=== PATIENT | male | born 1945 | race Caucasian/White ===

== ENCOUNTER 2016-10-31 07:18 | Inpatient (IN) | payer OTHER ==
[2016-10-25 18:25] LABS: BASOPHILS 0.2 %; BASOPHILS ABSOLUTE 0.02 10/3/uL (0.0-0.16); EOSINOPHILS 2.3 %; EOSINOPHILS ABSOLUTE 0.19 10/3/uL (0.0-0.53); HEMATOCRIT 38.2 % (40.0-51.0); HEMOGLOBIN 12.4 g/dL (13.6-17.8); IMMATURE GRANULOCYTES 0.2 %; IMMATURE GRANULOCYTES ABSOLUTE 0.02 10/3/uL (0.0-0.11); LYMPHOCYTES 15.2 %; LYMPHOCYTES ABSOLUTE 1.27 10/3/uL (0.67-4.30); MEAN CORPUS HGB CONC 32.5 g/dL (32.0-36.0); MEAN CORPUSCULAR HEMOGLOB 28.6 pg (26.0-34.0); MEAN PLATELET VOLUME 11.4 fL (9.2-13.0); MONOCYTES 9.5 %; MONOCYTES ABSOLUTE 0.79 10/3/uL (0.21-1.20); NEUTROPHILS 72.6 %; NEUTROPHILS ABSOLUTE 6.04 10/3/uL (2.02-8.40); PLATELET COUNT 214 10/3/uL (150-400); RED CELL COUNT 4.33 10/6/uL (4.7-6.1); WHITE BLOOD CELLS 8.3 10/3/uL (4.5-10.5)
[2016-10-25 18:28] LABS: MANUAL DIFF NO %; MEAN CORPUSCULAR VOLUME 88.2 fL (80-100)
[2016-10-25 18:51] LABS: A/G RATIO 0.7 (0.7-1.9); ALBUMIN 3.3 G/DL (3.5-5.0); ALKALINE PHOSPHATASE 80 U/L (45-117); BUN (BLOOD UREA NITROGEN) 17 MG/DL (6-23); CALCIUM, SERUM 9.1 MG/DL (8.5-10.4); CHLORIDE, SERUM 103 MMOL/L (96-112); CO2 (CARBON DIOXIDE) 29 MMOL/L (24-34); CREATININE 1.07 MG/DL (0.70-1.30); GFR AFRICAN AMERICAN 82 ML/MIN (>=60); GFR NON AFRICAN AMERICAN 70 ML/MIN (>=60); GLOBULIN 4.6 G/DL (2.5-4.1); GLUCOSE, SERUM 177 MG/DL (60-99); POTASSIUM, SERUM 3.7 MMOL/L (3.5-5.3); PREALBUMIN 16.5 MG/DL (17.0-43.0); SGOT(AST) 10 U/L (5-40); SGPT(ALT) 16 U/L (5-65); SODIUM, SERUM 140 MMOL/L (135-148); TOTAL BILIRUBIN 0.7 MG/DL (0-1.2); TOTAL PROTEIN 7.9 G/DL (6.0-8.5)
--- NOTE | ~2016-10-31 | OP ---
Record Of Operation [facility] [address] [place]. [address] NAME: CANDY MORRISON : 47 STATUS : ADM IN PAT#: [id number] AGE: 70 ADM/REG DATE : 10/31/16 MR#: [id number] REPORT SERV DATE: 11/01/16 DICTATED BY: SYLVIA WARD JR. DATE: 10/31/16 REPORT STATUS : Draft TRANSCRIBED BY: MODL DATE: 10/31/16 DATE OF PROCEDURE: 10/31/2016 SURGEON: Sylvia Ward MD ROLL UP HELPER: Eveline Howell. PROCEDURE: Repair of incarcerated umbilical/ventral hernia with mesh. PREOPERATIVE DIAGNOSIS: Umbilical hernia. POSTOPERATIVE DIAGNOSIS: Umbilical hernia. Ventral hernia with incarceration. ANESTHESIA: General. INDICATIONS: The patient has morbid obesity. Does have a massive hernia certainly in the umbilical region with associated skin excoriation and breakdown. Repair is indicated. FINDINGS: There was incarcerated hernia which emanated from the area of the umbilical region. This extended over approximately 10 cm with a hernia sac which measure approximately 20 to 25 cm. This was released and materials were reduced back into the peritoneal cavity. This was repaired with a lateral release repair with biologic mesh reinforcement. Overlying ulcerated skin was excised. DESCRIPTION OF PROCEDURE: With adequate general anesthesia, the patient was placed in supine position. The abdomen was prepped and draped sterilely. Local incision was outlined incorporating the ulcerated skin incision first on the left side, was deep into the dermis and a flap was raised out to encompass the extent of the hernia sac. Some of this was accomplished on the patient's right side and the hernia sac was dissected free of surrounding tissues. Then down to the fascial layer where the sac was opened, the fascia was opened, and hernia sac was dissected free and excised and submitted to Pathology with the opening of the fascial incision. The hernia contents were able to be reduced. This incorporated omentum and small bowel and colon. Then flaps were raised out to the lateral border of the latissimus to the rectus muscle. Anterior fascial incisions were made with allowed release of the fascia was able to be closed in midline with a running 0 Novafil. Redundant fat was excised. Then, a Biodesign graft was utilized to reinforce this securing it to the edges of the relaxed excision with interrupted mattress of 0 Novafil. A 13 x 22 cm graft was utilized and then two 19-Roni drains were left. The wound was closed in layers with 2-0 Vicryl, subcutaneous 2-0 Vicryl, and subcutaneous Monocryl. Negative pressure dressing was placed. The patient left the operating room in satisfactory condition. ESTIMATED BLOOD LOSS: 100 mL. Record Of Operation [facility] [address] [place]. [address] NAME: CANDY MORRISON : 47 STATUS : ADM IN [facility]#: [id number] AGE: 70 ADM/REG DATE : 10/31/16 MR#: [id number] REPORT SERV DATE: 11/01/16 DICTATED BY: SYLVIA WARD JR. DATE: 10/31/16 REPORT STATUS : Draft TRANSCRIBED BY: BASSAM DATE: 10/31/16 CORTES/BASSAM Sylvia Ward Jr., M.D. / [id number] CC: Jam Jackson Jr.
--- NOTE | ~2016-10-31 | DS ---
Discharge Summary [facility] [place] [address] [place]. [address] NAME: CANDY MORRISON : 47 STATUS : DIS IN PAT#: [id number] AGE: 71 ADM/REG DATE : 10/31/16 MR#: [id number] REPORT SERV DATE: 11/19/16 DICTATED BY: SYLVIA WARD JR. DATE: 11/18/16 REPORT STATUS : Draft TRANSCRIBED BY: BASSAM DATE: 11/18/16 Data Collection from hospitalization DISCHARGE DIAGNOSES: 1. Umbilical hernia. 2. Ventral hernia with incarceration. 3. Hypertension. 4. Type 2 diabetes. 5. Diabetic neuropathy. 6. Sleep apnea. 7. Morbid obesity. 8. Chronic obstructive pulmonary disease. 9. Congestive heart failure. 10.Arrhythmia. 11.Arthritis. 12.Rheumatoid arthritis. 13.Former smoker. CONSULTATIONS: Sylvia Pittman MD. PROCEDURES PERFORMED: Repair of incarcerated umbilical/ventral hernia with mesh on 10/31/2016. PATHOLOGY: Skin and soft tissues from umbilical hernia repair - hernia sac with prominent areas of fibrosis, ulcerated skin. MEDICATIONS: Aspirin 81 mg daily, Coreg 3.125 mg twice a day, vitamin B12 1000 mcg daily, Lasix 40 mg daily, hydrochlorothiazide 12.5 mg daily, Tresiba 38 units subcutaneously at noon as instructed, Synthroid 200 mcg daily, Mag-Ox 400 mg daily, Glucophage 1000 mg twice a day, Singulair 10 mg at bedtime, Percocet 5/325 one to two tablets every six hours as needed, Klor-Con 10 mEq daily, Altace 10 mg twice a day, and Coumadin 7 mg daily. CONDITION AT DISCHARGE: Stable. DISPOSITION: The patient was discharged home on an 1800-calorie diabetic diet with activities as instructed. He would follow up with me one week following discharge. HOSPITAL COURSE: This is a 70-year-old man who has morbid obesity. He has a massive hernia in the umbilical region with associated skin excoriation and breakdown. It was felt that repair was indicated. Treatment options were discussed and it was elected to proceed with surgical intervention. He was admitted to the hospital at this time for further evaluation and treatment. Upon admission, he was taken to the operating room where he underwent the above-mentioned procedure. He tolerated this well, and there were no complications. On postop day #1, his abdomen was soft. He was seen by Dr. Sylvia Pittman regarding medical management. The patient was resting in bed and hemodynamically stable. He did have some nausea postoperatively, but no vomiting at this time. He reported having some urinary retention, which he said was new Discharge Summary [facility] [id number] [place]. [address] NAME: CANDY MORRISON : 47 STATUS : DIS IN PAT#: [id number] AGE: 71 ADM/REG DATE : 10/31/16 MR#: [id number] REPORT SERV DATE: 11/19/16 DICTATED BY: SYLVIA WARD JR. DATE: 11/18/16 REPORT STATUS : Draft TRANSCRIBED BY: MODKayla DATE: 11/18/16 for him. All of his symptoms have started following surgery. White blood cell count was 11.1. Creatinine was 1.02. The patient was currently on sliding scale insulin. We would hold all oral anti-hyperglycemic medication. He was going to be started on Levemir and we would continue sliding scale insulin. Coreg and hydrochlorothiazide were continued. Lisinopril was going to be started. The patient was also started on atorvastatin for dyslipidemia. On 11/02/2016, he did complain of some pain and nausea. He was afebrile. An NG tube was placed. He was evaluated by Physical Therapy. He said he had a rough night. Flagyl and Levaquin were started for his leukocytosis. On 11/03/2016, he was feeling better. NG tube was removed. He had no nausea or vomiting. A trial of clear liquids was started. On 11/04/2016, he did complain of gas. He was not passing flatus. We encouraged him to increase his activity. Coreg was increased. Leukocytosis had resolved. He had good glycemic control over the next couple of days. The patient had a BMI of 58.3. He continued to have some gas pain. He began to pass flatus. His pain medications were decreased. IV fluids were continued. He had some increased O2 requirement. The NG tube was replaced with a large volume output. He continued to have good glycemic control. On the morning of 11/06/2016, he did have an episode of emesis. Hydralazine was being given every eight hours for systolic blood pressure greater than 170. NG tube was in place. He did have a bowel movement. On 11/08/2016, the NG tube was removed. His abdomen was soft. Going to restart his home diabetes medications soon. He continued to progress. He was eating well. Discharge planning was performed. On 11/10/2016, discharge instructions were given. Due to his improved and stable condition, he was discharged home with the above-stated instructions. Information collected by: Viola Mcfarlane I submit the above information as my discharge summary. JOSE/BASSAM Sylvia Ward Jr., M.D. / [id number] CC: Jam Jackson Jr., ARDYCE JANE
--- NOTE | ~2016-10-31 | CN ---
Consultation Report [facility] [address] [place]. [address] NAME: CANDY PALOMO : 47 STATUS : ADM IN [facility]#: [id number] AGE: 70 ADM/REG DATE : 10/31/16 MR#: [id number] REPORT SERV DATE: 11/01/16 DICTATED BY: SYLVIA OLVERA DATE: 11/01/16 REPORT STATUS : Draft TRANSCRIBED BY: MODKayla DATE: 11/01/16 CONSULTATION NOTE DATE OF CONSULTATION: REASON FOR CONSULT: Medical management, status post repair of incarcerated umbilical hernia. HISTORY OF PRESENTING ILLNESS: Mr. Palomo is a 70-year-old male with a history of hypertension, diabetes type 2, morbid obesity, chronic atrial fibrillation, obstructive sleep apnea, who presented to the hospital for repair of incarcerated umbilical hernia. The patient is status post procedure which he tolerated well. Hospitalist Service is being consulted to assist with medical management, status post surgery. At the time of my evaluation of the patient, the patient was resting in bed, hemodynamically stable. The patient was complaining that status post surgery that he has had nausea with no vomiting at this time. He also reports urinary retention which he says it is new for him, and all his symptoms started status post surgery. Otherwise, the patient states he is doing well and does not have any new complaints at this time. REVIEW OF SYSTEMS: 14-point review of system was performed. All systems were negative except as noted in the HPI. PAST MEDICAL HISTORY: Significant for: 1. Chronic atrial fibrillation. 2. Hypertension. 3. Hyperlipidemia. 4. Diabetes type 2. 5. Morbid obesity. PAST SURGICAL HISTORY: The patient has a recent history of umbilical hernia repair. FAMILY HISTORY: Significant for congestive heart failure in father, myocardial infarction in father, and cardiac arrhythmias in father. SOCIAL HISTORY: The patient is a former smoker and states that he quit a couple of years ago. Alcohol use, the patient denies any alcohol use or illicit drug use. ALLERGIES: THE PATIENT REPORTS NO KNOWN ALLERGIES. PHYSICAL EXAMINATION: GENERAL: The patient is lying in bed, appears stated age. Morbidly obese. Speaking in full sentences. HEENT: Normocephalic, atraumatic. Extraocular motors intact. Moist oral mucosa. NECK: Trachea midline and symmetric. No thyromegaly loaded. Neck full. Consultation Report [facility] [address] [place]. [address] NAME: CANDY PALOMO : 47 STATUS : ADM IN PAT#: [id number] AGE: 70 ADM/REG DATE : 10/31/16 MR#: [id number] REPORT SERV DATE: 11/01/16 DICTATED BY: SYLVIA OLVERA DATE: 11/01/16 REPORT STATUS : Draft TRANSCRIBED BY: BASSAM DATE: 11/01/16 CHEST: Nontender to palpation. CARDIOVASCULAR: Regular rate and rhythm. S1, S2. I did not appreciate any murmurs. LUNGS: Anterior lung caputo are clear bilaterally and unable to examine his posterior lung caputo secondary to difficulty of the patient sitting up secondary to body habitus. ABDOMEN: Protuberant without pathologic stride positive bowel sounds. Nontender. Nondistended. Insertion looks clean with clean dressing. Drains present and draining bloody fluid. EXTREMITIES: No cyanosis, no clubbing, no edema. NEUROLOGIC: Alert and oriented x3. LABORATORY DATA: WBC 11.1, hemoglobin 12.0, hematocrit 37.7, platelets 210. Sodium 139, potassium 3.9, chloride 104, bicarb 30, BUN 15, creatinine 1.02, and glucose 228. ASSESSMENT AND PLAN: 1. Diabetes type 2, uncontrolled, last A1c 9.6, blood glucose ranging from 187 to 248. The patient currently on sliding scale insulin. Plan, we will hold all oral anti hyperglycemic medications. I will start the patient on Levemir 10 units b.i.d., NovoLog 5 units premeal t.i.d., and continue sliding scale insulin . 2. Hypertension, uncontrolled. The patient currently on Coreg 6.25 and HCTZ 25 mg p.o. daily. Plan, we will start lisinopril 10 mg p.o. daily and escalated as needed. 3. Dyslipidemia. The patient has an ASCVD score of placing the patient at high risk for atherosclerotic cardiovascular disease. Plan, we will start the patient on atorvastatin 40 mg p.o. daily. 4. Morbid obesity. BMI 58.3. 5. Leukocytosis. White count elevated. No evidence of infection currently at this point, no indication for initiation of antibiotic therapy empirically. We will monitor for now. ROYA/BASSAM Sylvia Olvera MD / [id number] CC: Jam Jackson Jr., ARDYCE JANE
[~2016-10-31 07:18] MED LIST: ADVAIR250 INH; ALTACE10 MG PO; APRES10B PO; ASAB PO; BUM2 PO; C1 PO; COREG3 PO; COUMADIN4 MG PO; CYANO1000T PO; DIABETA5 PO; DUONEB INH; GLUCOPHAGE1000 MG PO; HYDROCHLOROT12.5 MG PO; KDUR20 PO; KLOR-CON 1010 MEQ PO; KLOR-CON M2020 MEQ PO; L40 PO; LEVAQUIN750 MG PO; LEVOTHYROXIN175 MCG PO; MAGOX4 PO; MEDROLPAK4 PO; MICRONASE5 MG PO; NORV5 PO; OCEAN NAS; PRAVACHOL40 MG PO; SINGULAIR1 PO; SYNTHROID175 MCG PO; SYNTHROID200 MCG PO; TRESIBA FL200 UNIT/1 SQ
[2016-10-31 07:50] LABS: INTERNATIONAL NORMAL RATI 1.3 UNITS (-); PROTIME (NOT ORD) 15.6 SEC (12.0-14.5)
[2016-10-31 14:44] LABS: BASOPHILS 0.2 %; BASOPHILS ABSOLUTE 0.03 10/3/uL (0.0-0.16); EOSINOPHILS 1.7 %; EOSINOPHILS ABSOLUTE 0.23 10/3/uL (0.0-0.53); HEMATOCRIT 37.5 % (40.0-51.0); HEMOGLOBIN 12.3 g/dL (13.6-17.8); IMMATURE GRANULOCYTES 0.4 %; IMMATURE GRANULOCYTES ABSOLUTE 0.05 10/3/uL (0.0-0.11); LYMPHOCYTES 8.6 %; MEAN CORPUS HGB CONC 32.8 g/dL (32.0-36.0); MEAN CORPUSCULAR HEMOGLOB 29.2 pg (26.0-34.0); MEAN CORPUSCULAR VOLUME 89.1 fL (80-100); MEAN PLATELET VOLUME 10.8 fL (9.2-13.0); MONOCYTES 7.8 %; MONOCYTES ABSOLUTE 1.08 10/3/uL (0.21-1.20); NEUTROPHILS 81.3 %; NEUTROPHILS ABSOLUTE 11.29 10/3/uL (2.02-8.40); PLATELET COUNT 216 10/3/uL (150-400); RBC DISTRIBUTION WIDTH 16.3 % (12.0-16.0); RED CELL COUNT 4.21 10/6/uL (4.7-6.1)
[2016-10-31 14:45] LABS: MANUAL DIFF NO %; WHITE BLOOD CELLS 13.9 10/3/uL (4.5-10.5)
[2016-10-31 14:54] LABS: BUN (BLOOD UREA NITROGEN) 17 MG/DL (6-23); CALCIUM, SERUM 8.7 MG/DL (8.5-10.4); CHLORIDE, SERUM 107 MMOL/L (96-112); CO2 (CARBON DIOXIDE) 25 MMOL/L (24-34); CREATININE 1.19 MG/DL (0.70-1.30); GFR AFRICAN AMERICAN 72 ML/MIN (>=60); GFR NON AFRICAN AMERICAN 62 ML/MIN (>=60); GLUCOSE, SERUM 200 MG/DL (60-99); SODIUM, SERUM 141 MMOL/L (135-148)
[2016-10-31 14:58] LABS: POTASSIUM, SERUM 4.3 MMOL/L (3.5-5.3)
[2016-11-01 06:30] LABS: BASOPHILS 0.2 %; BASOPHILS ABSOLUTE 0.02 10/3/uL (0.0-0.16); EOSINOPHILS ABSOLUTE 0.11 10/3/uL (0.0-0.53); HEMATOCRIT 37.7 % (40.0-51.0); IMMATURE GRANULOCYTES 0.4 %; IMMATURE GRANULOCYTES ABSOLUTE 0.04 10/3/uL (0.0-0.11); LYMPHOCYTES 7.1 %; LYMPHOCYTES ABSOLUTE 0.79 10/3/uL (0.67-4.30); MEAN CORPUS HGB CONC 31.8 g/dL (32.0-36.0); MEAN CORPUSCULAR HEMOGLOB 28.7 pg (26.0-34.0); MEAN CORPUSCULAR VOLUME 90.2 fL (80-100); MEAN PLATELET VOLUME 10.8 fL (9.2-13.0); MONOCYTES 11.2 %; MONOCYTES ABSOLUTE 1.25 10/3/uL (0.21-1.20); NEUTROPHILS 80.1 %; NEUTROPHILS ABSOLUTE 8.92 10/3/uL (2.02-8.40); PLATELET COUNT 210 10/3/uL (150-400); RBC DISTRIBUTION WIDTH 16.2 % (12.0-16.0); RED CELL COUNT 4.18 10/6/uL (4.7-6.1); WHITE BLOOD CELLS 11.1 10/3/uL (4.5-10.5)
[2016-11-01 06:35] LABS: INTERNATIONAL NORMAL RATI 1.3 UNITS (-); PROTIME (NOT ORD) 16.3 SEC (12.0-14.5)
[2016-11-01 06:39] LABS: MANUAL DIFF NO %
[2016-11-01 06:42] LABS: A/G RATIO 0.7 (0.7-1.9); ALBUMIN 2.9 G/DL (3.5-5.0); BUN (BLOOD UREA NITROGEN) 15 MG/DL (6-23); CALCIUM, SERUM 8.3 MG/DL (8.5-10.4); CHLORIDE, SERUM 104 MMOL/L (96-112); CREATININE 1.02 MG/DL (0.70-1.30); GFR AFRICAN AMERICAN 87 ML/MIN (>=60); GFR NON AFRICAN AMERICAN 75 ML/MIN (>=60); GLOBULIN 4.1 G/DL (2.5-4.1); GLUCOSE, SERUM 228 MG/DL (60-99); POTASSIUM, SERUM 3.9 MMOL/L (3.5-5.3); SGOT(AST) 10 U/L (5-40); SGPT(ALT) 15 U/L (5-65); SODIUM, SERUM 139 MMOL/L (135-148)
[2016-11-01 06:45] LABS: ALKALINE PHOSPHATASE 63 U/L (45-117); CO2 (CARBON DIOXIDE) 30 MMOL/L (24-34); TOTAL BILIRUBIN 2.2 MG/DL (0-1.2)
[2016-11-02 06:36] LABS: BASOPHILS 0.1 %; BASOPHILS ABSOLUTE 0.01 10/3/uL (0.0-0.16); EOSINOPHILS 0.1 %; EOSINOPHILS ABSOLUTE 0.02 10/3/uL (0.0-0.53); HEMATOCRIT 38.1 % (40.0-51.0); HEMOGLOBIN 12.3 g/dL (13.6-17.8); IMMATURE GRANULOCYTES 0.3 %; IMMATURE GRANULOCYTES ABSOLUTE 0.04 10/3/uL (0.0-0.11); LYMPHOCYTES 3.6 %; LYMPHOCYTES ABSOLUTE 0.53 10/3/uL (0.67-4.30); MEAN CORPUS HGB CONC 32.3 g/dL (32.0-36.0); MEAN CORPUSCULAR HEMOGLOB 29.1 pg (26.0-34.0); MEAN CORPUSCULAR VOLUME 90.1 fL (80-100); MEAN PLATELET VOLUME 10.7 fL (9.2-13.0); MONOCYTES 10.4 %; MONOCYTES ABSOLUTE 1.54 10/3/uL (0.21-1.20); NEUTROPHILS 85.5 %; NEUTROPHILS ABSOLUTE 12.67 10/3/uL (2.02-8.40); PLATELET COUNT 195 10/3/uL (150-400); RBC DISTRIBUTION WIDTH 16.4 % (12.0-16.0); RED CELL COUNT 4.23 10/6/uL (4.7-6.1); WHITE BLOOD CELLS 14.8 10/3/uL (4.5-10.5)
[2016-11-02 06:38] LABS: MANUAL DIFF NO %
[2016-11-02 06:43] LABS: BUN (BLOOD UREA NITROGEN) 13 MG/DL (6-23); CALCIUM, SERUM 8.5 MG/DL (8.5-10.4); CHLORIDE, SERUM 102 MMOL/L (96-112); CREATININE 0.99 MG/DL (0.70-1.30); GFR AFRICAN AMERICAN 90 ML/MIN (>=60); GFR NON AFRICAN AMERICAN 77 ML/MIN (>=60); GLUCOSE, SERUM 226 MG/DL (60-99); POTASSIUM, SERUM 4.2 MMOL/L (3.5-5.3); SODIUM, SERUM 136 MMOL/L (135-148)
[2016-11-02 06:45] LABS: INTERNATIONAL NORMAL RATI 1.3 UNITS (-); PROTIME (NOT ORD) 16.2 SEC (12.0-14.5)
[2016-11-02 06:46] LABS: CO2 (CARBON DIOXIDE) 25 MMOL/L (24-34)
[2016-11-03 05:57] LABS: INTERNATIONAL NORMAL RATI 1.3 UNITS (-); PROTIME (NOT ORD) 15.7 SEC (12.0-14.5)
[2016-11-03 06:03] LABS: A/G RATIO 0.5 (0.7-1.9); ALBUMIN 2.4 G/DL (3.5-5.0); ALKALINE PHOSPHATASE 62 U/L (45-117); BUN (BLOOD UREA NITROGEN) 13 MG/DL (6-23); CALCIUM, SERUM 8.3 MG/DL (8.5-10.4); CHLORIDE, SERUM 104 MMOL/L (96-112); CO2 (CARBON DIOXIDE) 27 MMOL/L (24-34); CREATININE 0.77 MG/DL (0.70-1.30); GFR AFRICAN AMERICAN 107 ML/MIN (>=60); GFR NON AFRICAN AMERICAN 93 ML/MIN (>=60); GLOBULIN 4.6 G/DL (2.5-4.1); GLUCOSE, SERUM 190 MG/DL (60-99); POTASSIUM, SERUM 4.1 MMOL/L (3.5-5.3); SGOT(AST) 7 U/L (5-40); SGPT(ALT) 9 U/L (5-65); SODIUM, SERUM 138 MMOL/L (135-148)
[2016-11-03 06:08] LABS: BASOPHILS 0.1 %; BASOPHILS ABSOLUTE 0.01 10/3/uL (0.0-0.16); EOSINOPHILS 1.8 %; EOSINOPHILS ABSOLUTE 0.16 10/3/uL (0.0-0.53); HEMATOCRIT 34.9 % (40.0-51.0); HEMOGLOBIN 11.4 g/dL (13.6-17.8); IMMATURE GRANULOCYTES 0.3 %; IMMATURE GRANULOCYTES ABSOLUTE 0.03 10/3/uL (0.0-0.11); LYMPHOCYTES 10.1 %; LYMPHOCYTES ABSOLUTE 0.91 10/3/uL (0.67-4.30); MEAN CORPUS HGB CONC 32.7 g/dL (32.0-36.0); MEAN CORPUSCULAR HEMOGLOB 29.3 pg (26.0-34.0); MEAN CORPUSCULAR VOLUME 89.7 fL (80-100); MEAN PLATELET VOLUME 10.6 fL (9.2-13.0); MONOCYTES 15.8 %; MONOCYTES ABSOLUTE 1.42 10/3/uL (0.21-1.20); NEUTROPHILS 71.9 %; NEUTROPHILS ABSOLUTE 6.45 10/3/uL (2.02-8.40); PLATELET COUNT 209 10/3/uL (150-400); RBC DISTRIBUTION WIDTH 16.2 % (12.0-16.0); RED CELL COUNT 3.89 10/6/uL (4.7-6.1)
[2016-11-03 06:10] LABS: MANUAL DIFF NO %
[2016-11-04 05:51] LABS: INTERNATIONAL NORMAL RATI 1.3 UNITS (-); PROTIME (NOT ORD) 16.5 SEC (12.0-14.5)
[2016-11-04 05:59] LABS: BASOPHILS 0.1 %; BASOPHILS ABSOLUTE 0.01 10/3/uL (0.0-0.16); EOSINOPHILS 2.1 %; EOSINOPHILS ABSOLUTE 0.24 10/3/uL (0.0-0.53); HEMATOCRIT 35.9 % (40.0-51.0); HEMOGLOBIN 11.7 g/dL (13.6-17.8); IMMATURE GRANULOCYTES 0.3 %; IMMATURE GRANULOCYTES ABSOLUTE 0.04 10/3/uL (0.0-0.11); LYMPHOCYTES 10.7 %; LYMPHOCYTES ABSOLUTE 1.25 10/3/uL (0.67-4.30); MEAN CORPUS HGB CONC 32.6 g/dL (32.0-36.0); MEAN CORPUSCULAR HEMOGLOB 29.2 pg (26.0-34.0); MEAN CORPUSCULAR VOLUME 89.5 fL (80-100); MEAN PLATELET VOLUME 10.5 fL (9.2-13.0); MONOCYTES ABSOLUTE 1.17 10/3/uL (0.21-1.20); NEUTROPHILS 76.8 %; NEUTROPHILS ABSOLUTE 8.98 10/3/uL (2.02-8.40); PLATELET COUNT 226 10/3/uL (150-400); RBC DISTRIBUTION WIDTH 16.3 % (12.0-16.0); RED CELL COUNT 4.01 10/6/uL (4.7-6.1); WHITE BLOOD CELLS 11.7 10/3/uL (4.5-10.5)
[2016-11-04 06:03] LABS: MANUAL DIFF NO %
[2016-11-04 06:06] LABS: A/G RATIO 0.5 (0.7-1.9); ALBUMIN 2.5 G/DL (3.5-5.0); ALKALINE PHOSPHATASE 72 U/L (45-117); BUN (BLOOD UREA NITROGEN) 16 MG/DL (6-23); CALCIUM, SERUM 8.5 MG/DL (8.5-10.4); CHLORIDE, SERUM 101 MMOL/L (96-112); CO2 (CARBON DIOXIDE) 29 MMOL/L (24-34); CREATININE 1.03 MG/DL (0.70-1.30); GFR AFRICAN AMERICAN 86 ML/MIN (>=60); GFR NON AFRICAN AMERICAN 74 ML/MIN (>=60); GLOBULIN 4.9 G/DL (2.5-4.1); GLUCOSE, SERUM 175 MG/DL (60-99); POTASSIUM, SERUM 4.3 MMOL/L (3.5-5.3); SGOT(AST) 9 U/L (5-40); SGPT(ALT) 12 U/L (5-65); SODIUM, SERUM 136 MMOL/L (135-148); TOTAL BILIRUBIN 0.8 MG/DL (0-1.2); TOTAL PROTEIN 7.4 G/DL (6.0-8.5)
[2016-11-05 05:11] LABS: BASOPHILS 0.2 %; BASOPHILS ABSOLUTE 0.02 10/3/uL (0.0-0.16); EOSINOPHILS 1.8 %; EOSINOPHILS ABSOLUTE 0.19 10/3/uL (0.0-0.53); HEMATOCRIT 35.3 % (40.0-51.0); HEMOGLOBIN 11.4 g/dL (13.6-17.8); IMMATURE GRANULOCYTES 0.4 %; IMMATURE GRANULOCYTES ABSOLUTE 0.04 10/3/uL (0.0-0.11); LYMPHOCYTES 5.2 %; LYMPHOCYTES ABSOLUTE 0.55 10/3/uL (0.67-4.30); MEAN CORPUS HGB CONC 32.3 g/dL (32.0-36.0); MEAN CORPUSCULAR HEMOGLOB 29.2 pg (26.0-34.0); MEAN CORPUSCULAR VOLUME 90.3 fL (80-100); MEAN PLATELET VOLUME 10.3 fL (9.2-13.0); MONOCYTES ABSOLUTE 1.68 10/3/uL (0.21-1.20); NEUTROPHILS 76.4 %; NEUTROPHILS ABSOLUTE 8.03 10/3/uL (2.02-8.40); PLATELET COUNT 218 10/3/uL (150-400); RBC DISTRIBUTION WIDTH 16.3 % (12.0-16.0); RED CELL COUNT 3.91 10/6/uL (4.7-6.1); WHITE BLOOD CELLS 10.5 10/3/uL (4.5-10.5)
[2016-11-05 05:19] LABS: MANUAL DIFF NO %
[2016-11-05 05:20] LABS: INTERNATIONAL NORMAL RATI 1.5 UNITS (-)
[2016-11-05 05:29] LABS: A/G RATIO 0.5 (0.7-1.9); ALBUMIN 2.2 G/DL (3.5-5.0); ALKALINE PHOSPHATASE 65 U/L (45-117); CHLORIDE, SERUM 101 MMOL/L (96-112); CREATININE 1.12 MG/DL (0.70-1.30); GFR AFRICAN AMERICAN 77 ML/MIN (>=60); GFR NON AFRICAN AMERICAN 67 ML/MIN (>=60); GLOBULIN 4.6 G/DL (2.5-4.1); GLUCOSE, SERUM 160 MG/DL (60-99); POTASSIUM, SERUM 4.7 MMOL/L (3.5-5.3); SGOT(AST) 10 U/L (5-40); SGPT(ALT) 9 U/L (5-65); SODIUM, SERUM 134 MMOL/L (135-148); TOTAL BILIRUBIN 0.7 MG/DL (0-1.2); TOTAL PROTEIN 6.8 G/DL (6.0-8.5)
[2016-11-05 05:32] LABS: BUN (BLOOD UREA NITROGEN) 25 MG/DL (6-23); CO2 (CARBON DIOXIDE) 24 MMOL/L (24-34)
[2016-11-05 05:33] LABS: CALCIUM, SERUM 8.6 MG/DL (8.5-10.4)
[2016-11-06 04:35] LABS: ALLENS TEST Pos; CARBOXYHEMOGLOBIN 0.9 % (0-3); DEVICE NRB; HCO3 (ACTUAL BICARBONATE) 25.7 MEQ/L (23-27); HEMOBLOGIN CONTENT 13.3 G/DL (14-18); INSTRUMENT SERIAL # 8083; METHEMOGLOBIN 0.3 % (0-3); O2 CONTENT 19.1 VOL% (18-24); OPERATOR ID 31061; PCO2 (CO2 TENSION) 46 MMHG (35-45); PO2 (O2 TENSION) 277 MMHG (79-93); SAMPLE Arterial; pH 7.37 (7.37-7.43)
[2016-11-06 05:21] LABS: BASOPHILS 0.2 %; BASOPHILS ABSOLUTE 0.02 10/3/uL (0.0-0.16); HEMATOCRIT 36.6 % (40.0-51.0); HEMOGLOBIN 11.9 g/dL (13.6-17.8); IMMATURE GRANULOCYTES 0.8 %; IMMATURE GRANULOCYTES ABSOLUTE 0.08 10/3/uL (0.0-0.11); LYMPHOCYTES 6.8 %; LYMPHOCYTES ABSOLUTE 0.68 10/3/uL (0.67-4.30); MANUAL DIFF NO %; MEAN CORPUS HGB CONC 32.5 g/dL (32.0-36.0); MEAN CORPUSCULAR HEMOGLOB 29.2 pg (26.0-34.0); MEAN CORPUSCULAR VOLUME 89.7 fL (80-100); MEAN PLATELET VOLUME 10.3 fL (9.2-13.0); MONOCYTES 15.1 %; MONOCYTES ABSOLUTE 1.52 10/3/uL (0.21-1.20); NEUTROPHILS 75.1 %; NEUTROPHILS ABSOLUTE 7.55 10/3/uL (2.02-8.40); PLATELET COUNT 271 10/3/uL (150-400); RBC DISTRIBUTION WIDTH 16.3 % (12.0-16.0); RED CELL COUNT 4.08 10/6/uL (4.7-6.1); WHITE BLOOD CELLS 10.1 10/3/uL (4.5-10.5)
[2016-11-06 05:22] LABS: INTERNATIONAL NORMAL RATI 1.6 UNITS (-); PROTIME (NOT ORD) 19.1 SEC (12.0-14.5)
[2016-11-06 05:34] LABS: CALCIUM, SERUM 8.7 MG/DL (8.5-10.4); CHLORIDE, SERUM 100 MMOL/L (96-112); CO2 (CARBON DIOXIDE) 27 MMOL/L (24-34); CREATININE 1.05 MG/DL (0.70-1.30); GFR AFRICAN AMERICAN 84 ML/MIN (>=60); GFR NON AFRICAN AMERICAN 72 ML/MIN (>=60); GLUCOSE, SERUM 156 MG/DL (60-99); POTASSIUM, SERUM 4.2 MMOL/L (3.5-5.3); SODIUM, SERUM 134 MMOL/L (135-148)
[2016-11-06 05:35] LABS: BUN (BLOOD UREA NITROGEN) 21 MG/DL (6-23)
[2016-11-07 05:07] LABS: HEMOGLOBIN 12.7 g/dL (13.6-17.8); MEAN CORPUSCULAR VOLUME 88.1 fL (80-100); MEAN PLATELET VOLUME 10.5 fL (9.2-13.0); PLATELET COUNT 206 10/3/uL (150-400); RBC DISTRIBUTION WIDTH 15.8 % (12.0-16.0); WHITE BLOOD CELLS 8.9 10/3/uL (4.5-10.5)
[2016-11-07 05:10] LABS: HEMATOCRIT 41.4 % (40.0-51.0); MANUAL DIFF YES %; MEAN CORPUS HGB CONC 30.7 g/dL (32.0-36.0)
[2016-11-07 05:42] LABS: BAND NEUTROPHILS 5 %; EOSINOPHILS 3 %; EOSINOPHILS ABSOLUTE (CALC) 0.27 10/3/uL (0.0-0.53); LYMPHOCYTES 14 %; LYMPHOCYTES ABSOLUTE (CALC) 1.25 10/3/uL (0.67-4.30); MONOCYTES 11 %; MONOCYTES ABSOLUTE (CALC) 0.98 10/3/uL (0.21-1.20); NEUTROPHILS ABSOLUTE (CALC) 6.41 10/3/uL (2.02-8.40); SEGMENTED NEUTROPHIL (0) 67 %; TOTAL NUCLEATED CELLS 100
[2016-11-07 05:44] LABS: PLATELET ESTIMATE ADQ (ADEQUATE); RBC MORPHOLOGY NORM (NORMAL)
[2016-11-07 07:16] LABS: A/G RATIO 0.5 (0.7-1.9); ALBUMIN 2.2 G/DL (3.5-5.0); ALKALINE PHOSPHATASE 69 U/L (45-117); BUN (BLOOD UREA NITROGEN) 17 MG/DL (6-23); CALCIUM, SERUM 8.3 MG/DL (8.5-10.4); CHLORIDE, SERUM 99 MMOL/L (96-112); CO2 (CARBON DIOXIDE) 31 MMOL/L (24-34); CREATININE 0.86 MG/DL (0.70-1.30); GFR AFRICAN AMERICAN 103 ML/MIN (>=60); GFR NON AFRICAN AMERICAN 88 ML/MIN (>=60); GLOBULIN 4.4 G/DL (2.5-4.1); GLUCOSE, SERUM 142 MG/DL (60-99); POTASSIUM, SERUM 3.6 MMOL/L (3.5-5.3); SGOT(AST) 16 U/L (5-40); SGPT(ALT) 11 U/L (5-65); SODIUM, SERUM 136 MMOL/L (135-148); TOTAL BILIRUBIN 0.7 MG/DL (0-1.2); TOTAL PROTEIN 6.6 G/DL (6.0-8.5)
[2016-11-08 05:34] LABS: BASOPHILS 0.3 %; BASOPHILS ABSOLUTE 0.02 10/3/uL (0.0-0.16); EOSINOPHILS 2.2 %; EOSINOPHILS ABSOLUTE 0.17 10/3/uL (0.0-0.53); HEMOGLOBIN 11.8 g/dL (13.6-17.8); IMMATURE GRANULOCYTES 1.8 %; IMMATURE GRANULOCYTES ABSOLUTE 0.14 10/3/uL (0.0-0.11); LYMPHOCYTES 12.5 %; LYMPHOCYTES ABSOLUTE 0.98 10/3/uL (0.67-4.30); MEAN CORPUSCULAR HEMOGLOB 28.8 pg (26.0-34.0); MEAN PLATELET VOLUME 9.5 fL (9.2-13.0); MONOCYTES 18.9 %; MONOCYTES ABSOLUTE 1.48 10/3/uL (0.21-1.20); NEUTROPHILS 64.3 %; NEUTROPHILS ABSOLUTE 5.04 10/3/uL (2.02-8.40); PLATELET COUNT 212 10/3/uL (150-400); RBC DISTRIBUTION WIDTH 15.9 % (12.0-16.0); WHITE BLOOD CELLS 7.8 10/3/uL (4.5-10.5)
[2016-11-08 05:35] LABS: HEMATOCRIT 36.1 % (40.0-51.0); MANUAL DIFF NO %; MEAN CORPUS HGB CONC 32.7 g/dL (32.0-36.0)
[2016-11-08 05:41] LABS: BUN (BLOOD UREA NITROGEN) 15 MG/DL (6-23); CALCIUM, SERUM 8.2 MG/DL (8.5-10.4); CHLORIDE, SERUM 100 MMOL/L (96-112); CO2 (CARBON DIOXIDE) 32 MMOL/L (24-34); CREATININE 0.85 MG/DL (0.70-1.30); GFR AFRICAN AMERICAN 103 ML/MIN (>=60); GFR NON AFRICAN AMERICAN 89 ML/MIN (>=60); GLUCOSE, SERUM 130 MG/DL (60-99); POTASSIUM, SERUM 3.6 MMOL/L (3.5-5.3); SODIUM, SERUM 137 MMOL/L (135-148)
[2016-11-10] MEDS ORDERED: PCET PO (17:24)
== END 2016-11-10 20:20 | disposition home or self-care (01) | DRG 354 ==
LOC: SDC/OF 07:18 → PACU 14:11 → 5SO 16:53
PROVIDERS: Hospitalist; Specialist
PROC: 0WUF0JZ Supplement Abdominal Wall with Synthetic Substitute, Open Approach (ICD-10-PCS; principal; 2016-10-31 10:00)
DX: K42.0 Umbilical hernia with obstruction, without gangrene (principal); Z68.43 Body mass index [BMI] 50.0-59.9, adult; E11.65 Type 2 diabetes mellitus with hyperglycemia; I48.2 Chronic atrial fibrillation; Z99.81 Dependence on supplemental oxygen; K43.6 Other and unspecified ventral hernia with obstruction, without gangrene; E66.01 Morbid (severe) obesity due to excess calories; I10 Essential (primary) hypertension; E78.5 Hyperlipidemia, unspecified; Z87.891 Personal history of nicotine dependence; G47.33 Obstructive sleep apnea (adult) (pediatric); J44.9 Chronic obstructive pulmonary disease, unspecified; E03.9 Hypothyroidism, unspecified; Z79.01 Long term (current) use of anticoagulants; Z79.84 Long term (current) use of oral hypoglycemic drugs; Z79.82 Long term (current) use of aspirin; Z79.4 Long term (current) use of insulin; Z79.899 Other long term (current) drug therapy
CPT/HCPCS: 71010; 71020; 74000; 80048; 80053; 82150; 82805; 82962; 83036; 83690; 83735; 83880; 84134; 85025; 85610; 87641; 88302; 93005; 94640; 97110-GP; 97116-GP; 97163-GP; 97530-GP; A9270-GY; C1768; G8978-CL-GP; G8979-CI-GP; J1170; J1956; J2250; J2270; J2370; J2405; J2550; J2710; J3010; J3370